=== PATIENT | female | born 1995 | race Caucasian/White ===

== ENCOUNTER 2016-08-30 19:46 | Emergency (ER) | payer SELFPAY ==
[~2016-08-30] VITALS: Wt 95.0 kg
[2016-08-30] MEDS ORDERED: IBUP800T25 PO (21:14)
[2016-08-30] MEDS ORDERED: HYDR-906 PO (21:14)
--- NOTE | 2016-08-30 21:22 | ERD ---
ER Documentation Chief Complaint Date/Time DATE: 08/30/16 TIME: 21:19 Chief Complaint Right leg injury, fell at work HPI This 20-year-old female who is at work and she was taking out the trash on a trip rolling trolley. She had one from a trolley and the wheels were not locked to the trolley move forward and she did the splits. There is no direct trauma to her knee pelvis back head and neck or other body part. She simply just over stretch doing the splits. She is complaining of pain to her right buttocks area and some to her right knee. There is no twisting of the knee she could recall and no gross dislocation or patellar dislocation. Pain is sharp worse with movement better with rest ROS All systems reviewed and are negative except as per history of present illness. Medications Home Meds Active Scripts Hydrocodone/Acetaminophen ([place] 5-325 Tablet) 1 Each Tablet, 1 TAB PO Q6H Y for PAIN, #20 TAB Prov:KASSIDYOSAPOSTOLOS A. DO 08/30/16 Ibuprofen* (Motrin*) 800 Mg Tab, 800 MG PO Q6H Y for PAIN AND OR ELEVATED TEMP, #30 TAB Prov:LEKKOS,APOSTOLOS A. DO 08/30/16 Allergies Allergies: Coded Allergies: No Known Allergy (Unverified , 08/30/16) PMhx/Soc Medical and Surgical Hx: pt denies Medical Hx, pt denies Surgical Hx History of Surgery: No Anesthesia Reaction: No Hx Neurological Disorder: No Hx Respiratory Disorders: No Hx Cardiac Disorders: No Hx Psychiatric Problems: No Hx Alcohol Use: No Hx Substance Use: No Hx Tobacco Use: No Smoking Status: Never smoker FmHx Family History: No coronary disease Physical Exam Vitals Vital Signs Date Time Temp Pulse Resp B/P Pulse Ox O2 Delivery O2 Flow Rate FiO2 08/30/16 20:41 99.6 96 20 135/74 98 Physical Exam Const: Well-developed, well-nourished Head: Atraumatic, normocephalic Eyes: Normal Conjunctiva, PERRLA, EOMI, normal sclera, no nystagmus ENT: Normal External Ears, Nose and Mouth, moist mucus membranes. Neck: Full range of motion. No meningismus, no lymphadenopathy. Resp: Clear to auscultation bilaterally, no wheezing, rhonchi, rales Cardio: Regular rate and rhythm, no murmurs, S1 S2 present Abd: Soft, non tender x 4, non distended. Normal bowel sounds, no guarding or rebound, no pulsitile abdominal masses or bruits Skin: No petechiae or rashes, no ecchymosis , no maculopapular rash Back: No midline or flank tenderness Ext: No cyanosis, or edema, FROM x 4, some mild decreased range of motion to the right knee due to pain. There is no swelling no ligamentous laxity. There is some tenderness at the right buttocks but no decreased range of motion of the hip normal inspection, neurovascularly intact x 4 Neur: Awake and alert, STR 5/5 x 4, sensation intact x 4, no focal findings, cerebellum intact Psych: Normal Mood and Affect Procedures/MDM Patient sustained a right lower extremities draining spray and advised her to get an MRI if she continues to have symptoms Departure Diagnosis: Primary Impression: Right knee sprain Encounter type: initial encounter Involved ligament of knee: unspecified ligament Qualified Code: S83.91XA - Sprain of right knee, unspecified ligament , initial encounter Additional Impressions: Pain of right leg Injury of right leg Encounter type: initial encounter Qualified Code: S89.91XA - Injury of right leg, initial encounter Condition: Stable Patient Instructions: Contusion, Lower Extremity MARICHUY CRUZ DO Aug 30, 2016 21:22
== END 2016-08-30 23:06 | disposition home or self-care (01) ==
LOC: FTE 19:46
DX: S83.91XA Sprain of unspecified site of right knee, initial encounter (principal); W18.39XA Other fall on same level, initial encounter; Y92.9 Unspecified place or not applicable
CPT/HCPCS: 99283